=== PATIENT | female | born 1970 | race Two or more races ===

== ENCOUNTER → 2018-08-24 14:21 | Outpatient (CLI) | payer OTHER, SELFPAY ==
[2018-08-28 12:50] LABS: HPV HC, High Risk Negative (Negative)
--- OUTSIDE RECORDS SUMMARY | 2018-11-26 06:46 | XMS RPT_ITS ---
:1970 Author Organization OHIP Care Team Providers Name Role Phone Zachery Leary Primary Care Unavailable Stencel, Yonatan Admitting Unavailable Stencel, Yonatan Attending Unavailable Furness, Lio Farris Attending Unavailable Zachery Leary Primary Care Unavailable Wilman Martin Attending Unavailable PROBLEMS PROBLEMS DATE TYPE CONDITION / CODE ATTENDING STATUS SOURCE 08/24/2018 Unknown Z12.4 - Wimlan Martin Active [place] Encounter for [facility] screening for Hospital malignant Repository neoplasm of cervix / Z12.4(ICD-10) PROCEDURES PROCEDURES No Procedure Records FoundRESULTS RESULTS PAP I-G HPV HI Collected: 08/24/2018 Status: F Source: KHRIS RISK 10:30 AM [facility] REPOSITORY Order Comment: CYTOLOGY INFORMATION: - CLINICAL INFORMATION: - DATE LMP/MENOPAUSE: 08/17/18 LMP - COLLECTION VIAL: Thin Prep Vial - HOME ATTENDANT SOURCE: CERVICAL/ENDOCERVICAL - COLLECTION TECHNIQUE: BRUSH/SPATULA Specimen Comment: [id number] Specimen Comment: Source.............Cervix;Endocervix Specimen Comment: LMP / Prev Treat...HEX=[id number] Specimen Comment: No. of containers..01 ThinPrep Vial TYPE CODE TESTS RESULT OUT OF REFERENCE UNITS RANGE LAB L7400.0800 . High DIAGN Comment Result Comment: EPITHELIAL CELL ABNORMALITY. ATYPICAL SQUAMOUS CELLS OF UNDETERMINED SIGNIFICANCE. ENDOMETRIAL CELLS ARE PRESENT. THE SHEDDING OF ENDOMETRIAL CELLS IN ALEISHA/POST MENOPAUSAL WOMEN MAY REPRESENT BENIGN ENDOMETRIAL LESIONS, HORMONAL ALTERATIONS OR UNCOMMONLY, ENDOMETRIAL ABNORMALITIES. LMP NOTED. LAB L7400.0900 . Normal ADEQ Comment Result Comment: Satisfactory for evaluation. Endocervical and/or squamous metaplastic cells (endocervical component) are present. LAB L7400.1400 . Normal PERFORM Comment Result Comment: Juana Ward, Soliciting Freight Agent (ASCP) LAB L7400.1700 . Normal SIGN Comment Result Comment: Flower Chance MD, Pathologist LAB L7400.1720 . Normal Path prov. Comment ICD9 Result Comment: R87.610 LAB L7400.2575 . Normal TEST METHOD Comment Result Comment: This liquid based ThinPrep(R) pap test was screened with the use of an image guided system. LAB L7400.2600 . Normal . COMM LAB L7400.2700 . Normal PAPSMR Comment Result Comment: The Pap smear is a screening test designed to aid in the detection of premalignant and malignant conditions of the uterine cervix. It is not a diagnostic procedure and should not be used as the sole means of detecting cervical cancer. Both false-positive and false-negative reports do occur. LAB L7400.2950 Negative Normal HPV Negative HC,HGH RISK Result Comment: This high-risk HPV test detects thirteen high-risk types (16/18/31/33/35/39/45/51/52/56/58/59/68) without differentiation. Performed at: [facility] [id number] Multi Craft Maintenance Technician: Ramandeep Arboleda MD, Phone: [phone] Performed at: =[facility] [id number] Multi Craft Maintenance Technician: Ramandeep Arboleda MD, Phone: [phone] Performed By: #### L7400.0375 #### [facility] (refer to report for specific site) refer to report for address and phone number CBC W/ AUTO DIFF Collected: 11/11/2017 Status: F Source: RESTORATION 9:26 AM [facility] REPOSITORY TYPE CODE TESTS RESULT OUT OF RANGE REFERENCE UNITS LAB 79255355(L 3.6-11.0 E3/mcL OINC) Normal WBC 6.2 LAB 31244750(L 3.90-5.40 E6/mcL OINC) Normal RBC 4.79 LAB 96175849(L 12.0-16.0 G/DL OINC) Normal Hgb 14.2 LAB 65667743(L 36.0-48.0 % OINC) Normal Hct 42.2 LAB 68466960(L 11.5-14.5 % OINC) High RDW 14.7 LAB 68754865(L 27.0-31.0 pg OINC) Normal MCH 29.7 LAB 65342353(L 33.0-37.0 G/DL OINC) Normal MCHC 33.7 LAB 15006930(L 78.0-100.0 fL OINC) Normal MCV 88.2 LAB 46501259(L 7.4-11.0 fL OINC) Normal MPV 8.4 LAB 94681377(L 130-400 E3/mcL OINC) Normal Platelet 237 Performed By: #### [id number] #### [facility] [address] [place] [address] AUTO DIFF Collected: 11/11/2017 Status: F Source: RESTORATION 9:26 AM [facility] REPOSITORY Order Comment: Order Added by Discern Expert. TYPE CODE TESTS RESULT OUT OF RANGE REFERENCE UNITS LAB 61071151(L 37.0-75.0 % OINC) Normal Neutro Auto 63.0 LAB 55585611(L 20.0-55.0 % OINC) Normal Lymph Auto 28.6 LAB 16072356(L 0.0-10.0 % OINC) Normal Providence Auto 5.9 LAB 15648788(L 0.0-11.0 % OINC) Normal Eos Auto 1.9 LAB 97202628(L 0.0-2.0 % OINC) Normal Basophil Auto 0.6 LAB 10568262(L 1.4-6.5 E3/mcL OINC) Normal Neutro 3.9 Absolute LAB 66290301(L 1.2-3.4 E3/mcL OINC) Normal Lymph Absolute 1.8 LAB 14290905(L 0.0-0.7 E3/mcL OINC) Normal Providence Absolute 0.4 LAB 84136538(L 0.0-0.7 E3/mcL OINC) Normal Eos Absolute 0.1 LAB 44049177(L 0.0-0.2 E3/mcL OINC) Normal Basophil 0.0 Absolute Performed By: #### [id number] #### [facility] [address] [place] [address] CMP Collected: 11/11/2017 Status: F Source: RESTORATION 9:26 AM [facility] REPOSITORY TYPE CODE TESTS RESULT OUT OF RANGE REFERENCE UNITS LAB 95868847(L 70-99 mg/dL OINC) Glucose Normal Lvl 83 LAB 13501357(L 7-18 mg/dL OINC) BUN Normal 16 LAB 0991190(LO 0.6-1.3 mg/dL INC) Normal Creatinine 0.6 LAB 59332100(L 8.4-10.2 mg/dL OINC) Calcium Normal Lvl 9.3 LAB 34237434(L 136-145 mEq/L OINC) Sodium Normal Lvl 139 LAB 19323020(L 3.5-5.1 mEq/L OINC) Normal Potassium Lvl 4.3 LAB 00298008(L 98-107 mEq/L OINC) Chloride Normal 105 LAB 45108920(L 24.0-30.0 mEq/L OINC) CO2 Normal 25.8 LAB 74931577(L 42-121 Int._Unit/ OINC) L Alk Phos Normal 51 LAB 13726287(L 0.2-1.0 mg/dL OINC) High Bili Total 1.2 LAB 22094065(L 3.2-5.0 G/DL OINC) Albumin Normal Lvl 3.8 LAB 67960384(L 6.4-8.3 G/DL OINC) Total Normal Protein 6.8 LAB 22660710(L 10-40 Int._Unit/ OINC) L ALT Normal 13 LAB 96813453(L 10-42 Int._Unit/ OINC) L AST Normal 21 LAB 21539471(L 5.4-30.0 ratio OINC) Normal BUN/Creat Ratio 26.7 LAB 45131044(L 2.0-4.0 G/DL OINC) Globulin Normal 3.0 LAB 52989446(L 1.1-1.9 ratio OINC) A/G Normal Ratio 1.3 Performed By: #### [id number] #### [facility] [address] [place] [address] EGFR Collected: 11/11/2017 Status: F Source: [place]OR[place] 9:26 AM [facility] REPOSITORY Order Comment: Order added by Discern Expert. TYPE CODE TESTS RESULT OUT OF RANGE REFERENCE UNITS LAB 66454975(LO mL/min/1.73 INC) m2 Normal eGFR >60 LAB 75178160(LO mL/min/1.73 INC) m2 Normal eGFR AA >60 Performed By: #### [id number] #### [facility] [address] [place] [address] FERRITIN Collected: 11/11/2017 Status: F Source: RESTORATION 9:26 AM [facility] REPOSITORY TYPE CODE TESTS RESULT OUT OF RANGE REFERENCE UNITS LAB 00789996(L 11.0-306.8 ng/mL OINC) Normal Ferritin Lvl 12.2 Performed By: #### [id number] #### [facility] [address] [place] [address] TSH Collected: 11/11/2017 Status: F Source: RESTORATION 9:26 AM [facility] REPOSITORY TYPE CODE TESTS RESULT OUT OF RANGE REFERENCE UNITS LAB 60227907(LO 0.30-5.60 mIU/m INC) Normal TSH 4.00 Performed By: #### [id number] #### [facility] [address] [place] [address] ALLERGIES ALLERGIES DATE TYPE / CODE NAME / CODE REACTION SEVERITY SOURCE Drug/068264 No Known Taoism 003(SNOMED Allergies [facility]) System Repository ENCOUNTERS ENCOUNTERS ADMIT/DISCHARGE ACCOUNT NUMBER ADMITTING ENCOUNTER LOCATION SOURCE CLASS 08/24/2018 [id number] [facility] ing:[facility]SPEC Repository 07/02/2018/07/02/20 [id number] [facility] Medical [address]: Repository [facility] 11/11/2017/11/12/19 [id number] Stencel, Ambulatory Taoism [address] ing:.[facility] System Repository PAYERS PAYERS ENCOUNTER GUARANTOR PAYER SUBSCRIBER SOURCE 08/24/2018 Wolf Reyes Primary CHRISTINA SENA: Khris [facility] Insurance:MEDICAL [id number] [address]Lwj: Number: Repository [id number] (HP) Date:[id number] [address] [place] [id number]: 08/24/2018 Secondary NOT GIVENUNK Khris Insurance:SELF PAY [facility] Number: Effective Repository Date:2018-08-24 07/02/2018 WOLF Phipps Aldo MEDLEYB: Insurance:1500 HICKEYDOB: [facility] [id number] BOX MEDICAL MUTUALPolicy [id number] [address] Number: Effective [address] Repository [place], [place] Date:2018-07-02 - [place] [id number]: [id number] [place], [place] Name::[id number]: (HP) [address] [place] [phone]: [phone] (HP) [phone] (WP) 11/11/2017 WOLF Phipps Primary CHRISTINA CORTEZDOB: Insurance:Medical [facility] [id number] [facility] Number: [id number] [address] Repository [place], [place] Date:2017-11-11 - [place] [phone]: [id number] [place], [place] Name:Medical [facility] [phone]: (HP) [address] [place] [id number]: [phone] (HP) [phone] (WP)
== END ==
PROVIDERS: Visit Provider Obstetrics & Gynecology
DX: Z12.4 Encounter for screening for malignant neoplasm of cervix (principal)
CPT/HCPCS: 87624; 88175; G0145

== ENCOUNTER → 2019-04-08 | Outpatient (CLI) | payer OTHER, SELFPAY ==
[2019-03-30 14:05] VITALS: BMI 26.6
--- NOTE | 2019-04-08 13:43 | BI_ITS ---
MAMMOGRAPHY - BILATERAL SCREENING REASON FOR EXAM: Female, 48 years old. Routine annual screening examination. PERTINENT HISTORY: Non-contributory. TECHNIQUE: Digital bilateral breast bradley (3D mammographic acquisition) in the CC and MLO projections. 2-D mediolateral oblique (MLO) and craniocaudad (CC) views of both breasts were obtained. CAD: Full Field Digital Mammography with Computer Added Detection was performed. COMPARISON: Comparison is made with prior study dated August 07, 2017 and August 05, 2016. FINDINGS: Breast Composition: The breasts are heterogeneously dense, which may obscure small masses. There are no dominant masses or suspicious calcifications. No other significant abnormalities are identified. There has been no significant change since the prior study. BI/SCREEN MAMM (CAD) W/BRADLEY BILAT IMPRESSION: Stable bilateral screening mammogram. Yearly follow-up mammogram recommended. (A) ASSESSMENT CATEGORY: BIRADS Category 1: Negative. A letter regarding these results will be sent to the patient by the facility within 30 days. Approximately 10% of breast cancers are not detected by mammography. A normal mammogram should not delay biopsy of a clinically suspicious abnormality. [id number] Electronically Signed: James Bahena, at 13:20 EDT , Service support ,
--- NOTE | 2019-04-08 14:07 | CT_ITS ---
STUDY: CT CHEST WITH CONTRAST REASON FOR EXAM: Female, 48 years old. Abnormal skin biopsy. Staging. RADIATION DOSAGE (If Supplied By Facility): CTDIvol = ( 8.71 ) mGy, DLP = ( 310.55 ) mGycm TECHNIQUE: Transaxial imaging was performed following intravenous administration of 100 ml of Isovue 370 contrast material. Coronal and sagittal reformatted images were created. Individualized dose optimization techniques were used for this CT. COMPARISON: None FINDINGS: There are no pulmonary infiltrates or pleural effusions. There is a 3 mm nodule in the right lower lobe (image 198 series 1004) There are no additional pulmonary nodules or masses. There is no pneumothorax. The heart and pericardium are within normal limits. There is no thoracic lymphadenopathy. There is no evidence of thoracic aortic aneurysm. Images through the upper abdomen demonstrate no significant abnormality. There are no destructive osseous lesions. CT/Chest WITH Contrast IMPRESSION: 3 mm nodule in the right lower lobe. A follow-up CT in 6-12 months is recommended. Otherwise, clear lungs. Electronically Signed: Piter Rose, at 16:06 EDT Tel , Service support ,
== END | disposition home or self-care (01) ==
PROVIDERS: Family Provider Family Medicine; PCP Family Medicine; Referring Provider Internal Medicine Hematology & Oncology; Visit Provider Internal Medicine Hematology & Oncology
DX: C49.12 Malignant neoplasm of connective and soft tissue of left upper limb, including shoulder (principal); Z12.31 Encounter for screening mammogram for malignant neoplasm of breast
CPT/HCPCS: 71260; 77063; 77067; Q9967

== ENCOUNTER → 2019-07-12 | Outpatient (CLI) | payer OTHER, SELFPAY ==
[2019-04-15 10:58] VITALS: BMI 26.6
--- NOTE | 2019-07-12 13:55 | CT_ITS ---
STUDY: CT CHEST WITH CONTRAST REASON FOR EXAM: Female, 49 years old. Nodule history of sarcoma RADIATION DOSAGE (If Supplied By Facility): CTDIvol = ( 8.56 ) mGy, DLP = ( 259.22 ) mGycm TECHNIQUE: Transaxial imaging was performed following intravenous administration of IV 100mL Isovue-300 100. Multiplanar coronal and sagittal images were reformatted. Individualized dose optimization techniques were used for this CT. COMPARISON: April 08, 2019 chest x-ray FINDINGS: Within the right lung base there is a stable well-circumscribed nodule measuring 3 mm image #98 series 2. There is trace left lower lobe atelectasis. There is no new focal consolidation pleural effusion pulmonary edema or pneumothorax. There is no demonstrated pleural abnormality. There is borderline cardiomegaly. Normal mediastinum. Normal hilar regions. Normal enhanced pulmonary arteries. Is aortic tortuosity minimal calcification. There are multi-level degenerative changes of the thoracic spine. There is a inhomogeneous mildly lobulated appearance of the spleen that is similar to the prior study. CT/Chest WITH Contrast IMPRESSION: Stable chest CT. Stable 3 mm nodule right lower lobe. Mild lobulation of the spleen could consider follow-up ultrasound this is likely benign finding. Electronically Signed: Doreen Baltazar MD at 14:59 EST Tel , Service support ,
== END | disposition home or self-care (01) ==
LOC: CT 13:54
PROVIDERS: Referring Provider Internal Medicine Hematology & Oncology; Visit Provider Internal Medicine Hematology & Oncology
DX: R91.1 Solitary pulmonary nodule (principal); C49.12 Malignant neoplasm of connective and soft tissue of left upper limb, including shoulder
CPT/HCPCS: 71260; Q9967

== ENCOUNTER → 2019-11-08 07:57 | Outpatient (CLI) | payer OTHER, SELFPAY ==
[2019-07-15 14:19] VITALS: BMI 27.8
--- NOTE | 2019-11-08 07:58 | CT_ITS ---
STUDY: CT CHEST WITH CONTRAST REASON FOR EXAM: Female, 49 years old. 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 Hx pulmonary emboli. RADIATION DOSAGE (If Supplied By Facility): CTDIvol = ( 7.80 ) mGy, DLP = ( 220.68 ) mGycm TECHNIQUE: Transaxial imaging was performed following intravenous administration of IV 100mL Isovue-300. Individualized dose optimization techniques were used for this CT. COMPARISON: 07/12/2019 FINDINGS: There is no change in a 3 mm noncalcified nodule in the inferior right lower lobe the lungs on image 94 and follow-up CT the chest is recommended in 6 months to document stability. No new noncalcified nodule or mass. There is no demonstrated pleural abnormality. Normal heart and pericardium. Normal mediastinum. Normal hilar regions. Normal enhanced pulmonary arteries. Normal aorta arch and descending thoracic aorta. Normal osseous structures. There is no demonstrated abnormality of the visualized upper abdomen. CT/Chest WITH Contrast IMPRESSION: No change in 3 mm right lower lobe nodule and follow-up CT the chest is recommended in 6 months document stability. That''ll document 12 month of stability and no further follow-up will be required after that. Electronically Signed: Shaw Harvey MD at 8:36 EST Tel , Service support ,
[2019-11-08 08:20] LABS: CREATININE FINGERSTICK 0.7 mg/dL (0.55-1.02)
== END ==
PROVIDERS: PCP Family Medicine; Referring Provider Internal Medicine Hematology & Oncology; Visit Provider Internal Medicine Hematology & Oncology
DX: C49.12 Malignant neoplasm of connective and soft tissue of left upper limb, including shoulder (principal); R91.1 Solitary pulmonary nodule
CPT/HCPCS: 71260; Q9967

== ENCOUNTER → 2020-05-10 07:47 | Outpatient (CLI) | payer OTHER, SELFPAY ==
[2019-11-15 11:09] VITALS: BMI 26.8
--- NOTE | 2020-05-10 07:48 | CT_ITS ---
STUDY: CT CHEST WITH CONTRAST REASON FOR EXAM: Female, 49 years old. F/U LUNG NODULE. HISTORY SARCOMA OF LEFT ARM RADIATION DOSAGE (If Supplied By Facility): CTDIvol = ( 8.29 ) mGy, DLP = ( 228.06 ) mGycm TECHNIQUE: Transaxial imaging was performed following intravenous administration of IV 100mL Isovue-300. Multiplanar coronal and sagittal images were reformatted. Individualized dose optimization techniques were used for this CT. COMPARISON: Comparison is made with prior study dated 11/08/2019. FINDINGS: Minimal increased markings are seen in the posterior aspect of the right middle lobe suggestive of a mild scarring. Linear scar in the lingular segment of the left upper lobe. Stable 3 mm noncalcified nodule in the posterior aspect of the right lower lobe as seen on axial image #94. There is no demonstrated pleural abnormality. Normal heart and pericardium. Normal mediastinum. Normal hilar regions. Normal enhanced pulmonary arteries. Normal aorta arch and descending thoracic aorta. There are mild degenerative changes of the thoracic spine. There is no demonstrated abnormality of the visualized upper abdomen. CT/Chest WITH Contrast IMPRESSION: Stable examination. Electronically Signed: James Bahena, at 12:55 EDT , Service support ,
== END ==
PROVIDERS: Referring Provider Internal Medicine Hematology & Oncology; Visit Provider Internal Medicine Hematology & Oncology
DX: R91.1 Solitary pulmonary nodule (principal); I26.99 Other pulmonary embolism without acute cor pulmonale
CPT/HCPCS: 71260; Q9967

== ENCOUNTER → 2020-06-16 12:21 | Outpatient (CLI) | payer OTHER, SELFPAY ==
[2020-05-29 15:36] VITALS: BMI 27.6
--- NOTE | 2020-06-16 12:22 | BI_ITS ---
MAMMOGRAPHY - BILATERAL SCREENING REASON FOR EXAM: Female, 50 years old. Routine annual screening examination. PERTINENT HISTORY: Non-contributory. TECHNIQUE: Digital bilateral breast bradley (3D mammographic acquisition) in the CC and MLO projections. 2-D mediolateral oblique (MLO) and craniocaudad (CC) views of both breasts were obtained. CAD: Full Field Digital Mammography with Computer Added Detection was performed. COMPARISON: Comparison is made with prior study dated 04/08/2019 and 08/07/2017. FINDINGS: Breast Composition: The breasts are heterogeneously dense, which may obscure small masses. There are no dominant masses or suspicious calcifications. Stable benign-appearing bilateral axillary lymph nodes. No other significant abnormalities are identified. There has been no significant change since the prior study. BI/SCREEN MAMM (CAD) W/BRADLEY BILAT IMPRESSION: Stable bilateral screening mammogram. Yearly follow-up mammogram recommended. (A) ASSESSMENT CATEGORY: BIRADS Category 2: Benign. A letter regarding these results will be sent to the patient by the facility within 30 days. Approximately 10% of breast cancers are not detected by mammography. A normal mammogram should not delay biopsy of a clinically suspicious abnormality. [id number] Electronically Signed: James Bahena, at 13:16 EDT , Service support ,
== END ==
PROVIDERS: PCP Family Medicine; Referring Provider Internal Medicine Hematology & Oncology; Visit Provider Internal Medicine Hematology & Oncology
DX: Z12.31 Encounter for screening mammogram for malignant neoplasm of breast (principal)
CPT/HCPCS: 77063; 77067

== ENCOUNTER → 2020-11-08 08:09 | Outpatient (CLI) | payer OTHER, SELFPAY ==
[2020-05-29 15:36] VITALS: BMI 27.6
--- NOTE | 2020-11-08 08:12 | CT_ITS ---
STUDY: CT CHEST WITH CONTRAST REASON FOR EXAM: Female, 50 years old. S/P RESECTION LEFT ARM SARCOMA F/U AND LUNG NODULE RADIATION DOSAGE (If Supplied By Facility): CTDIvol = ( 11.88 ) mGy, DLP = ( 391.36 ) mGycm TECHNIQUE: Transaxial imaging was performed following intravenous administration of 100 ML ISOVUE 300. Multiplanar coronal and sagittal images were reformatted. Individualized dose optimization techniques were used for this CT. COMPARISON: Comparison is made with prior study dated 05/10/2020. FINDINGS: Small bilateral benign appearing axillary lymph nodes. Stable minimal increased linear markings in the medial aspect of the right middle lobe as well as lingular segment of the left upper lobe suggests some mild scarring. Stable 3 mm noncalcified nodule in the posterior aspect of the right lower lobe as seen on axial image #95. There is no demonstrated pleural abnormality. Normal heart and pericardium. Normal mediastinum. Normal hilar regions. Normal enhanced pulmonary arteries. Normal aorta arch and descending thoracic aorta. There are mild degenerative changes of the thoracic spine. There is no demonstrated abnormality of the visualized upper abdomen. CT/Chest WITH Contrast IMPRESSION: Stable examination. Electronically Signed: James Bahena MD at 9:21 EST , Service support ,
== END ==
PROVIDERS: Referring Provider Internal Medicine Hematology & Oncology; Visit Provider Internal Medicine Hematology & Oncology
DX: R91.1 Solitary pulmonary nodule (principal); C49.12 Malignant neoplasm of connective and soft tissue of left upper limb, including shoulder
CPT/HCPCS: 71260; Q9967

== ENCOUNTER → 2021-05-17 12:54 | Outpatient (CLI) | payer OTHER, SELFPAY ==
[2020-11-13 11:18] VITALS: BMI 28.0
--- NOTE | 2021-05-17 13:28 | CT_ITS ---
STUDY: CT CHEST WITH CONTRAST REASON FOR EXAM: Female, 50 years old. F/U LUNG NODULE, H/O SARCOMA RADIATION DOSAGE (If Supplied By Facility): CTDIvol = ( 9.10 ) mGy, DLP = ( 287.09 ) mGycm TECHNIQUE: Transaxial imaging was performed following intravenous administration of IV 100mL Isovue-300. Individualized dose optimization techniques were used for this CT. COMPARISON: 11/08/2020 FINDINGS: No filling defect in the pulmonary arteries. Intact thoracic aorta. No adenopathy. No pleural or pericardial effusion. No pneumothorax. A stable 0.2 cm nodule in the right lower lobe, image #93 axial series. No additional pulmonary nodule or mass. Scattered linear scars in the bilateral lower lungs. Sections through the up abdomen demonstrate a tiny hyperenhancing focus in the dome of the liver, image #94. This is being stable since 04/08/2019 and may represent a flash fill hemangioma or perfusion variant. A subcentimeter cyst in the left lobe of the liver is redemonstrated. There is no lytic or sclerotic lesion in the thoracic cage. CT/Chest WITH Contrast IMPRESSION: A stable tiny nodule in the right lung base. No new pulmonary nodule or mass. Electronically Signed: Willie Sanders MD at 21:16 EDT Tel , Service support ,
== END ==
PROVIDERS: Referring Provider Internal Medicine Hematology & Oncology; Visit Provider Internal Medicine Hematology & Oncology
DX: R91.1 Solitary pulmonary nodule (principal); C49.12 Malignant neoplasm of connective and soft tissue of left upper limb, including shoulder
CPT/HCPCS: 71260; Q9967

== ENCOUNTER → 2021-06-19 09:59 | Outpatient (CLI) | payer OTHER, SELFPAY ==
[2020-11-13 11:18] VITALS: BMI 28.0
--- NOTE | 2021-06-19 10:01 | BI_ITS ---
MAMMOGRAPHY - BILATERAL SCREENING REASON FOR EXAM: Female, 51 years old. Routine annual screening examination. PERTINENT HISTORY: Non-contributory. TECHNIQUE: Digital bilateral breast bradley (3D mammographic acquisition) in the CC and MLO projections. 2-D mediolateral oblique (MLO) and craniocaudad (CC) views of both breasts were obtained. CAD: Full Field Digital Mammography with Computer Added Detection was performed. COMPARISON: Comparison is made with prior study 06/16/2020 and 04/08/2019. FINDINGS: Breast Composition: The breasts are heterogeneously dense, which may obscure small masses. There are no dominant masses or suspicious calcifications. Stable benign-appearing bilateral axillary lymph nodes. No other significant abnormalities are identified. There has been no significant change since the prior study. BI/SCRN MAMM (CAD)W/BRADLEY BILAT IMPRESSION: Stable bilateral screening mammogram. Yearly follow-up mammogram recommended. (A) ASSESSMENT CATEGORY: BIRADS Category 2: Benign. A letter regarding these results will be sent to the patient by the facility within 30 days. Approximately 10% of breast cancers are not detected by mammography. A normal mammogram should not delay biopsy of a clinically suspicious abnormality. [id number] Electronically Signed: James Bahena MD at 12:47 EDT , Service support ,
== END ==
PROVIDERS: Referring Provider Internal Medicine Hematology & Oncology; Visit Provider Internal Medicine Hematology & Oncology
DX: Z12.31 Encounter for screening mammogram for malignant neoplasm of breast (principal)
CPT/HCPCS: 77063; 77067

== ENCOUNTER 2021-11-27 11:04 | Outpatient (CLI) | payer OTHER, SELFPAY ==
--- NOTE | 2021-11-27 11:13 | CT_ITS ---
STUDY: CT CHEST WITH CONTRAST REASON FOR EXAM: Female, 51 years old. FOLLOW UP LUNG NODULE, HX OF SARCOMA -- IV CONTRAST ONLY RADIATION DOSAGE (If Supplied By Facility): CTDIvol = ( 11.15 ) mGy, DLP = ( 314.83 ) mGycm TECHNIQUE: Transaxial imaging was performed following intravenous administration of IV 100mL Isovue-300. Multiplanar coronal and sagittal images were reformatted. Individualized dose optimization techniques were used for this CT. COMPARISON: Comparison is made with prior study dated 05/17/2021. FINDINGS: Stable small benign-appearing bilateral axillary lymph nodes. Stable 2 mm noncalcified nodule in the right lower lobe as seen on axial image #95. Stable mild linear scarring in the anterior right middle lobe as well as in both lower lobes. There is no demonstrated pleural abnormality. Normal heart and pericardium. Normal mediastinum. Normal hilar regions. Normal enhanced pulmonary arteries. Normal aorta arch and descending thoracic aorta. Stable scattered sclerotic foci seen in the endplates in the lower dorsal spine. Stable tiny enhancing focus in the dome of the right lobe of the liver as seen on axial image #94. CT/Chest WITH Contrast IMPRESSION: Stable examination. Electronically Signed: James Bahena MD at 12:33 EDT ,
== END 2021-11-27 23:59 | disposition home or self-care (01) ==
PROVIDERS: Referring Provider Internal Medicine Hematology & Oncology; Visit Provider Internal Medicine Hematology & Oncology
DX: R91.1 Solitary pulmonary nodule (principal); C49.12 Malignant neoplasm of connective and soft tissue of left upper limb, including shoulder
CPT/HCPCS: 71260; Q9967